=== PATIENT | female | born 1950 | race Caucasian/White ===

== ENCOUNTER 2022-02-28 16:58 | Emergency (ER) | payer BC ==
[2022-02-28] MEDS ORDERED: Sodium Chloride 0.9% 1000 ML 1,000 ML IV STA (17:08)
[2022-02-28 17:11] VITALS: BP 167/84; PULSE 71; O2SAT 93
--- NOTE | 2022-02-28 17:21 | ERPHSYRPT ---
- History of Present Illness Time Seen by Provider: 02/28/22 17:18 Source: patient Exam Limitations: no limitations Patient Subjective Stated Complaint: pt reports 3 weeks ago she began having allergy type symptoms, states she saw her PCP 02/23 and was dx with bronchitis, s tates she has been coughing so hard she has since ruptured her ear drum. pt reports today that she is very dizzy and sick to her stomachand short of breath, states she is taking an antibiotic and cough meds Triage Nursing Assessment: pt is aox3, pupils perrl, afebrile, resps easy and non labored, radial pulses strong and equal, cap refill < 3 seconds, pt skin pale, moist, intact. pt with dry heaves upon exam. pt unable to open her eyes without becoming dizzy. Physician History: pt reports 3 weeks ago she began having allergy type symptoms, states she saw her PCP 02/23 and was dx with bronchitis, states she has been coughing so hard she has since ruptured her ear drum. pt reports today that she is very dizzy and sick to her stomach and short of breath, states she is taking an antibiotic and cough meds. Patient denies any fever nausea vomiting. Patient was seen by primary care nurse practitioner and chest x-ray was ordered which was reported negative. Timing/Duration: day(s) (three days) Severity: moderate Associated Symptoms: cough Allergies/Adverse Reactions: No Known Drug Allergies Allergy (Verified 02/28/22 17:11) Hx Tetanus, Diphtheria Vaccination/Date Given: Yes Hx Influenza Vaccination/Date Given: Yes Hx Pneumococcal Vaccination/Date Given: No Immunizations Up to Date: Yes Travel Risk - International Travel Have you traveled outside of the country in past 3 weeks: No - Coronavirus Screening Are you exhibiting any of the following symptoms?: No Close contact with a COVID-19 positive Pt in past 14-21 Days: No - Vaccine Status Have you recieved a Covid-19 vaccination: Yes Insurance Claims Representative: [employer] - Vaccination Dates Date of 2cond Vaccination (if applicable): unk - Review of Systems Constitutional: No Fever, No Chills Eyes: No Symptoms Ears, Nose, & Throat: Ear Pain Respiratory: Cough, No Dyspnea Cardiac: No Chest Pain, No Edema, No Syncope Abdominal/Gastrointestinal: No Abdominal Pain, No Nausea, No Vomiting, No D iarrhea Genitourinary Symptoms: No Dysuria Musculoskeletal: No Back Pain, No Neck Pain Skin: No Rash Neurological: Dizziness, No Focal Weakness, No Sensory Changes Psychological: No Symptoms Endocrine: No Symptoms All Other Systems: Reviewed and Negative - Past Medical History Pertinent Past Medical History: Yes Neurological History: No Pertinent History ENT History: No Pertinent History Cardiac History: High Cholesterol, Hypertension Respiratory History: No Pertinent History Endocrine Medical History: Diabetes Type I Musculoskeletal History: No Pertinent History GI Medical History: No Pertinent History History: No Pertinent History Psycho-Social History: Anxiety, Depression Female Reproductive Disorders: No Pertinent History Other Medical History: anemia,kidney stones,freq uti, - Past Surgical History Past Surgical History: Yes Neuro Surgical History: No Pertinent History Cardiac: No Pertinent History Respiratory: No Pertinent History Gastrointestinal: No Pertinent History Genitourinary: No Pertinent History Musculoskeletal: No Pertinent History Female Surgical History: No Pertinent History Other Surgical History: right lower leg bx skin cander,eye suyrgery, gastric bypass 2004 - Social History Smoking Status: Never smoker Exposure to second hand smoke: No Drug Use: none Patient Lives Alone: Yes - Nursing Vital Signs Nursing Vital Signs: Initial Vital Signs Temperature 97.0 F 02/28/22 17:01 Pulse Rate 71 02/28/22 17:01 Respiratory Rate 17 02/28/22 17:01 Blood Pressure 167/84 02/28/22 17:01 O2 Sat by Pulse Oximetry 93 L 02/28/22 17:01 Pain Scale Pain Intensity 0 - Physical Exam General Appearance: no apparent distress, alert Eye Exam: PERRL/EOMI, eyes nml inspection Ears, Nose, Throat Exam: normal ENT inspection, pharynx normal, moist mucous membranes, TM abnormal (R) Neck Exam: normal inspection, non-tender, supple, full range of motion Respiratory Exam: lungs clear, diminished breath sounds, No respiratory distress Cardiovascular Exam: regular rate/rhythm, normal heart sounds, normal peripheral pulses Gastrointestinal/Abdomen Exam: soft, normal bowel sounds, No tenderness, No mass Back Exam: normal inspection, normal range of motion, No CVA tenderness, No vertebral tenderness Extremity Exam: normal inspection, normal range of motion, pelvis stable Neurologic Exam: alert, oriented x 3, cooperative, normal mood/affect, nml cerebellar function, nml station & gait, sensation nml, No motor deficits Skin Exam: normal color, warm, dry, No rash Lymphatic Exam: No adenopathy SpO2: 93 - Course Nursing assessment & vital signs reviewed: Yes - CT Exams Head CT Interpretation: Tele-radiologist Report (right mastoiditis) Ordered Tests: Active Orders 24 hr Category Date Time Status EKG-ER Only STAT Care 02/28/22 17:08 Active HEAD WITHOUT CONTRAST [CT] Stat Exams 02/28/22 17:08 Taken CBC W DIFF Stat Lab 02/28/22 18:06 Completed CMP Stat Lab 02/28/22 18:06 Received TROPONIN Q3H Lab 02/28/22 18:06 Received TROPONIN Q3H Lab 02/28/22 20:15 Ordered TROPONIN Q3H Lab 02/28/22 23:15 Ordered TROPONIN Q3H Lab 03/01/22 02:15 Ordered TROPONIN Q3H Lab 03/01/22 05:15 Ordered UA W/RFX CULTURE Stat Lab 02/28/22 Ordered Medication Summary Generic Name Dose Route Start Last Admin Trade Name Freq PRN Reason Stop Dose Admin Ceftriaxone Sodium/Dextrose 1 g in 50 mls @ 100 mls/hr 02/28/22 18:34 Rocephin 1 Gm-D5w 50 Ml Bag IV 02/28/22 19:03 STAT STA Meclizine HCl 25 mg 02/28/22 18:37 Meclizine Hcl 25 Mg Tablet PO 03/30/22 18:36 Q6H PRN PRN DIZZINESS Discontinued Medications Generic Name Dose Route Start Last Admin Trade Name Freq PRN Reason Stop Dose Admin Ceftriaxone Sodium 1,000 mg 02/28/22 18:27 02/28/22 18:34 Ceftriaxone Sodium 1000 Mg Inj Vial IM 02/28/22 18:28 Not Given STAT ONE Sodium Chloride 1,000 mls @ 999 mls/hr 02/28/22 17:08 02/28/22 17:47 Sodium Chloride 0.9% 1000 Ml IV 02/28/22 18:08 999 mls/hr .Q1H1M STA Administration Sodium Chloride Confirm 02/28/22 17:42 Sodium Chloride 0.9% 1000 Ml Administered 02/28/22 17:43 Dose 1,000 mls @ ud .ROUTE .STK-MED ONE Ceftriaxone Sodium/Dextrose Confirm 02/28/22 18:38 Rocephin 1 Gm-D5w 50 Ml Bag Administered 02/28/22 18:39 Dose 1 g in 50 mls @ ud IV .STK-MED ONE Meclizine HCl 25 mg 02/28/22 18:36 Meclizine Hcl 25 Mg Tablet PO 02/28/22 18:37 STAT ONE Ondansetron HCl 4 mg 02/28/22 17:26 02/28/22 17:51 Ondansetron Hcl 4 Mg/2 Ml Vial IV 02/28/22 17:27 4 mg STAT ONE Administration Ondansetron HCl Confirm 02/28/22 17:49 Ondansetron Hcl 4 Mg/2 Ml Vial Administered 02/28/22 17:50 Dose 4 mg .ROUTE .[facility]-MED ONE Lab/Rad Data: Laboratory Result Diagrams 02/28/22 18:06 Laboratory Results 02/28/22 Range/Units 18:06 WBC 13.0 H (4.0-10.5) x10^3/uL RBC 4.28 (4.1-5.4) x10^6/uL Hgb 10.6 L (12.0-16.0) g/dL Hct 35.1 (35-47) % MCV 82.0 (78-100) fL MCH 24.8 L (26-32) pg MCHC 30.2 L (32-36) g/dL RDW 15.8 H (11.5-14.0) % Plt Count 329 (150-450) x10^3/uL MPV 9.9 (7.5-11.0) fL Gran % 86.9 H (36.0-66.0) % Immature Gran % (Auto) 0.5 H (0.00-0.4) % Nucleat RBC Rel Count 0.0 (0.00-0.1) % Eos # (Auto) 0.01 (0-0.5) x10^3/uL Immature Gran # (Auto) 0.07 H (0.00-0.03) x10^3u/L Absolute Lymphs (auto) 1.14 (1.0-4.6) x10^3/uL Absolute Monos (auto) 0.46 (0.0-1.3) x10^3/uL Absolute Nucleated RBC 0.00 (0.00-0.01) x10^3u/L Lymphocytes % 8.8 L (24.0-44.0) % Monocytes % 3.5 (0.0-12.0) % Eosinophils % 0.1 (0.00-5.0) % Basophils % 0.2 (0.0-0.4) % Absolute Granulocytes 11.25 H (1.4-6.9) x10^3/uL Basophils # 0.03 (0-0.4) x10^3/uL - Progress Progress: improved Counseled pt/family regarding: lab results, diagnosis, need for follow-up, rad results - Departure Departure Disposition: Home Clinical Impression: Vestibular dizziness involving right inner ear, Mastoiditis of right side Condition: Stable Critical Care Time: Yes Critical Care Time(excluding separately billable procedures): Critical 30-74 mins Instructions: Vertigo (a Type of Dizziness) (DC), Mastoiditis (DC) Additional Instructions: Discharge/Care Plan SABINA FOWLER was seen on 02/28/22 in the Emergency Room. The patient was counseled regarding Diagnosis,Lab results, Imaging studies, need for follow up and when to return to the Emergency Room. Prescriptions given: Discharge Note I have spoken with the patient and/or caregivers. I have explained the patient's condition, diagnosis and treatment plan based on the information available to me at this time. I have answered the patient's and/or caregiver's questions and addressed any concerns. The patient and/or caregivers have as good understanding of the patient's diagnosis, condition and treatment plan as can be expected at this point. The vital signs have been stable. The patient's condition is stable and appropriate for discharge from the emergency department. The patient will pursue further outpatient evaluation with the primary care physician or other designated or consulting physician as outlined in the discharge instructions. The patient and/or caregivers are agreeable to this plan of care and follow-up instructions have been explained in detail. The patient and/or caregivers have received these instruction. The patient/and or caregivers are aware that any significant change in condition or worsening of symptoms should prompt an immediate return to this or the closest emergency department or call 911. SABINA FOWLER was seen on 02/28/22 n the Emergency Room. At that time you were treated for an emergent condition, during your visit Laboratory, Radiology and/or other procedures may have been ordered. It is very important that you follow-up with your Primary Care Physician NYA,MAXIMILIANO F within the next 24-48 hours to review your Emergency Room visit and the final results of testing that was ordered. Some test results such as Urine Cultures, Blood Cultures, and other cultures if ordered will not be finalized for 24-48 hours. If you do not have a Primary Care Provider please call the medical records department at [phone] to obtain a copy of your results or you may sign into our patient portal to obtain these results by visiting us @ [email or web address] and completing the following steps: 1. Click on the Patient Portal link 2. Click the Patient Self Enrollment Link to complete the enrollment form and entering your 3. Once the enrollment form is completed you will receive an email with a temporary ID and password at the email address you provided. 4. Next choose a user name and password. Your user name must be at least 4 characters long and your password must be at least 4 characters long. 5. Choose a security question from the list and provide your answer to the question. If you already have signed into the Health Portal you may access your Health Care Information 03/05 by the following steps: 1. Login to our website @ [email or web address] 2. Enter your original user name and password. FAQS The [facility] Health Portal is an online tool that contains your Lab Results, Radiology Reports, Visit History, Discharge Instructions and Health Summary Lab and Radiology Results will not be available for 72 hours on the portal. The Portal is a secure site, passwords are encryted and URLs are re-written so they cannot be copied and pasted. You and authorized family members are the only ones who can access your Portal. Also there is a timeout feature that protects your information if you leave the Portal page open. If you have technical difficulty please use the Contact Us link on the page this will allow you to submit any questions you have regarding the Portal or you may contact the Medical Record Department at [phone]. Prescriptions: Meclizine HCl 25 mg [Antivert 25 mg] 25 mg PO Q8HPRN PRN #20 tablet PRN Reason: Dizziness Levofloxacin [Levaquin 500 MG Tablet] 500 mg PO QAM #7 tablet
[2022-02-28] MEDS ORDERED: Zofran 4 MG/2 ML VIAL IV ONE (17:26)
[2022-02-28] MEDS ORDERED: Sodium Chloride 0.9% 1000 ML 1,000 ML ONE (17:42)
[2022-02-28] MEDS ORDERED: Zofran 4 MG/2 ML VIAL ONE (17:49)
[2022-02-28 18:07] LABS: Absolute Neutrophil Ct (ANC) 11.25 x10^3/uL (1.4-6.9); Basophil (Absolute #) 0.03 x10^3/uL (0-0.4); Eosinophil % 0.1 % (0.00-5.0); Eosinophil (Absolute #) 0.01 x10^3/uL (0-0.5); Hematocrit 35.1 % (35-47); Hemoglobin 10.6 g/dL (12.0-16.0); Lymphocyte (Absolute #) 1.14 x10^3/uL (1.0-4.6); Lymphocytes % 8.8 % (24.0-44.0); Mean Corpuscular Hemoglobin 24.8 pg (26-32); Mean Corpuscular Hgb Concent. 30.2 g/dL (32-36); Mean Platelet Volume 9.9 fL (7.5-11.0); Monocyte (Absolute #) 0.46 x10^3/uL (0.0-1.3); Monocytes % 3.5 % (0.0-12.0); Neutrophil % 86.9 % (36.0-66.0); Platelet Count 329 x10^3/uL (150-450); Red Blood Count 4.28 x10^6/uL (4.1-5.4); Red Cell Distribution Width 15.8 % (11.5-14.0)
[2022-02-28] MEDS ORDERED: Rocephin 1000 MG INJ IM ONE (18:27)
[2022-02-28] MEDS ORDERED: ROCEPHIN 1 Gm-D5w 50 ml Bag** 1 G/50 ML IVPB IV STA (18:34)
[2022-02-28] MEDS ORDERED: ANTIVERT 25 MG PO ONE (18:36)
[2022-02-28] MEDS ORDERED: ANTIVERT 25 MG PO PRN (18:37)
[2022-02-28] MEDS ORDERED: ANTIVERT 25 MG ONE (18:38)
[2022-02-28] MEDS ORDERED: ROCEPHIN 1 Gm-D5w 50 ml Bag** 1 G/50 ML IVPB IV ONE (18:38)
[2022-02-28 18:46] LABS: INFLUENZA A NEGATIVE (NEGATIVE); INFLUENZA B NEGATIVE (NEGATIVE); RESPIRATORY SYNCTIAL VIRUS NEGATIVE (Negative); SARS-CoV-2 Xpert Express NEGATIVE (NEGATIVE)
[2022-02-28 18:47] LABS: ALBUMIN 3.8 g/dL (3.5-5.0); ALKALINE PHOSPHATASE 92 U/L (38-126); ANION GAP 15.3 MEQ/L (5-15); BLOOD UREA NITROGEN 16 mg/dL (7-17); CHLORIDE 105 mmol/L (98-107); Calcium 9.3 mg/dL (8.4-10.2); Carbon Dioxide 23 mmol/L (22-30); Creatinine 1 0.43 mg/dL (0.52-1.04); EST GLOMERULAR FILTRATION RATE > 60.0 ML/MIN; Glucose 129 mg/dL (74-106); Potassium 4.5 mmol/L (3.5-5.1); SGOT/AST 28 U/L (14-36); SGPT/ALT 18 U/L (0-35); SODIUM 139 mmol/L (137-145); Total Protein 6.7 g/dL (6.3-8.2)
--- NOTE | 2022-02-28 19:40 | XRAY ---
Indication: Nausea, vomiting, and dizziness. Multiple contiguous axial images obtained through the head without contrast. Comparison: None. Age-appropriate global atrophy. A few tiny bilateral basal ganglia remote lacunar infarcts. No acute intracranial hemorrhage, abnormal extra-axial fluid collection, or mass effect. Fourth ventricle is midline without hydrocephalus. Bony calvarium intact. Moderate mucosal thickening both maxillary sinuses with fluid leveling. Also partial opacification right mastoid air cells and right middle ear presumed inflammatory. Impression: 1. 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 2. Bilateral maxillary sinus disease. Opacification right middle ear and right mastoid air cells presumed inflammatory. 3. Remaining CT head without contrast exam is negative. Comment: Preliminary interpretation made by [facility]. No critical discrepancy.
== END 2022-02-28 19:31 | disposition home or self-care (01) ==
LOC: ED 16:58
DX: H81.21 Vestibular neuronitis, right ear (principal); H70.91 Unspecified mastoiditis, right ear; R05.9 Cough, unspecified; E78.5 Hyperlipidemia, unspecified; I10 Essential (primary) hypertension; E10.9 Type 1 diabetes mellitus without complications
CPT/HCPCS: 0241U; 36415; 70450; 80053; 84484; 85025; 93005; 96360; 96365; 96374; 99284; 99291; J0696; J2405; A9270-GY